=== PATIENT | female | born 1990 | race Caucasian/White ===

== ENCOUNTER 2017-12-13 09:36 | Outpatient (CLI) | payer SELFPAY ==
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
[2017-12-13] MEDS ORDERED: Lidocaine 2% Jelly 5 ML TUBE ONE (21:48)
[2017-12-13] MEDS ORDERED: Sodium Chloride 0.9% 15 ML NEB ONE (21:48)
== END 2017-12-13 09:37 | disposition home or self-care (01) ==
LOC: WCC 09:36
PROVIDERS: ATTEND Family Medicine
DX: T81.89XD Other complications of procedures, not elsewhere classified, subsequent encounter (principal)
CPT/HCPCS: A4218

== ENCOUNTER 2023-04-29 11:53 | Emergency (ER) | payer MEDICAID, OTHER, SELFPAY | END 2023-04-29 13:02 | disposition home or self-care (01) | LOC: ERS 11:53 | DX: B95.8 Unspecified staphylococcus as the cause of diseases classified elsewhere (principal); B02.9 Zoster without complications; F17.210 Nicotine dependence, cigarettes, uncomplicated | CPT/HCPCS: 99283 ==